=== PATIENT | female | born 1985 | race Caucasian/White ===

== ENCOUNTER 2018-03-04 17:38 | Outpatient (CLI) | payer BC ==
[2018-03-04 20:17] LABS: ADD UMIC NO; UR ASCORBIC ACID 40 mg/dL (NEGATIVE); UR BILIRUBIN (Dip) NEGATIVE (NEGATIVE); UR BLOOD (Dip) NEGATIVE (NEGATIVE); UR CLARITY SLIGHTLY CLOUDY (CLEAR); UR COLOR YELLOW (YELLOW); UR GLUCOSE (Dip) NEGATIVE (NEGATIVE); UR KETONES (Dip) NEGATIVE (NEGATIVE); UR LEUKOCYTE ESTERASE (Dip) NEGATIVE Leu/ul (NEGATIVE); UR NITRITE (Dip) NEGATIVE (NEGATIVE); UR RBC 1 /HPF (0-5); UR SPECIFIC GRAVITY (Dip) 1.019 (1.003-1.030); UR SQUAMOUS EPITHELIAL CELL FEW /HPF (FEW); UR TOTAL PROTEIN (Dip) NEGATIVE (NEGATIVE); UR UROBILINOGEN (Dip) NEGATIVE (NEGATIVE); UR WBC 1 /HPF (0-5)
[2018-03-04] MEDS: BETAMET NA PHOS/AC(6 MG/ML) 5ML INJ IM (20:24)
== END 2018-03-04 21:23 | disposition home or self-care (01) ==
LOC: OBT 17:38 → L-D 17:40 → OBT 21:23
DX: O41.03X0 Oligohydramnios, third trimester, not applicable or unspecified (principal); O09.293 Supervision of pregnancy with other poor reproductive or obstetric history, third trimester; Z3A.33 33 weeks gestation of pregnancy
CPT/HCPCS: 76817; 76818; 81001; 81003; 87086; 96372

== ENCOUNTER 2018-03-05 20:18 | Outpatient (CLI) | payer BC ==
[2018-03-05] MEDS: BETAMET NA PHOS/AC(6 MG/ML) 5ML INJ IM (21:27)
== END 2018-03-05 21:37 | disposition home or self-care (01) ==
LOC: OBT 20:18 → L-D 20:20 → OBT 21:37
DX: O09.213 Supervision of pregnancy with history of pre-term labor, third trimester (principal); Z3A.33 33 weeks gestation of pregnancy
CPT/HCPCS: 96372

== ENCOUNTER 2018-03-06 13:20 | Inpatient (IN) | payer BC ==
[2018-03-06 18:02] LABS: RUPTURE FETAL MEMBRANES POSITIVE (NEGATIVE)
[2018-03-06 19:04] LABS: ADD MAN DIFF? NO
[2018-03-06 19:06] LABS: BASOPHILS % 0.2 % (0.0-2.0); EOSINOPHILS % 0.3 % (0.0-7.0); HEMATOCRIT 33.4 % (37.0-47.0); HEMOGLOBIN 11.4 g/dl (12.0-16.0); LYMPHOCYTES # 2.1 10^3/ul (0.8-2.9); LYMPHOCYTES % 21.9 % (15.0-51.0); MEAN CORPUSCULAR HEMOGLOBIN 31.2 pg (29.0-33.0); MEAN CORPUSCULAR HGB CONC 34.1 g/dl (32.0-37.0); MEAN CORPUSCULAR VOLUME 91.5 fl (82.0-101.0); MEAN PLATELET VOLUME 12.3 fl (7.4-10.4); MONOCYTE # 0.7 10^3/ul (0.3-0.9); MONOCYTES % 7.1 % (0.0-11.0); NEUTROPHIL # 6.6 10^3/ul (1.6-7.5); NEUTROPHILS % 68.7 % (39.0-77.0); PLATELET COUNT 203 10^3/UL (140-415); RED BLOOD COUNT 3.65 10^6/ul (4.20-5.40); RED CELL DISTRIBUTION WIDTH 13.1 % (11.5-14.5)
[2018-03-06 19:06] LABS: WHITE BLOOD COUNT 9.7 10^3/ul (4.8-10.8)
[2018-03-06] MEDS: LACTATED RINGER'S 1,000 ML IV (19:08)
[2018-03-06] MEDS: AMPICILLIN 2 GM/NS (PMX) 100 ML IV (19:17)
[2018-03-06 19:25] LABS: ALANINE AMINOTRANSFERASE 23 IU/L (13-69); ALBUMIN 3.9 g/dl (3.3-4.9); ALBUMIN/GLOBULIN RATIO 1.08; ALKALINE PHOSPHATASE 109 IU/L (42-121); ANION GAP 15 (8-16); ASPARTATE AMINO TRANSFERASE 19 IU/L (15-46); BILIRUBIN,INDIRECT 0.2 mg/dl (0-1.1); BILIRUBIN,TOTAL 0.2 mg/dl (0.2-1.3); BLOOD UREA NITROGEN 8 mg/dl (7-20); CALCIUM 9.5 mg/dl (8.4-10.2); CARBON DIOXIDE 22 mmol/L (21-31); CHLORIDE 106 mmol/L (97-110); GLUCOSE 94 mg/dl (70-220); POTASSIUM 3.8 mmol/L (3.5-5.1); SODIUM 139 mmol/L (135-144); TOTAL PROTEIN 7.5 g/dl (6.1-8.1)
[2018-03-06 19:28] LABS: INR 0.93; PROTIME 12.6 Sec (11.9-14.9)
[2018-03-06 19:29] LABS: PARTIAL THROMBOPLASTIN TIME 26.9 Sec (25.0-35.0)
[2018-03-06] MEDS: AZITHROMYCIN 500MG/NS (PMX) 250 ML IV (20:45)
[2018-03-06] MEDS: MAGNESIUM SULFATE 4 GM/100 ML 100 ML IV (21:50)
[2018-03-06] MEDS: MAGNESIUM SULFATE 20 GM/500 ML 500 ML IV (22:29)
[2018-03-06] MEDS: AMPICILLIN 1 GM/NS (PMX) 50 ML IV (23:13)
[2018-03-07] MEDS ORDERED: ERYTHROMYCIN LACTOBIONATE 500 MG in SOD CHLORIDE 0.9% 100 ML IVPB
[2018-03-07 01:34] LABS: MAGNESIUM 4.1 mg/dl (1.7-2.5)
[2018-03-07] MEDS: AMPICILLIN 1 GM/NS (PMX) 50 ML IV ×6 (03:10→20:45)
[2018-03-07 07:14] LABS: MAGNESIUM 4.8 mg/dl (1.7-2.5)
[2018-03-07] MEDS: MAGNESIUM SULFATE 20 GM/500 ML 500 ML IV ×2 (08:57→19:30)
[2018-03-07] MEDS: LACTATED RINGER'S 1,000 ML IV ×3 (10:28→20:45)
[2018-03-07 13:02] LABS: MAGNESIUM 3.3 mg/dl (1.7-2.5)
[2018-03-07 19:43] LABS: MAGNESIUM 2.5 mg/dl (1.7-2.5)
[2018-03-07] MEDS: AZITHROMYCIN 500MG/NS (PMX) 250 ML IV (20:44)
[2018-03-08] MEDS: MAGNESIUM SULFATE 20 GM/500 ML 500 ML IV (00:17)
[2018-03-08] MEDS: AMPICILLIN 1 GM/NS (PMX) 50 ML IV ×4 (00:30→16:40)
[2018-03-08 00:57] LABS: MAGNESIUM 2.2 mg/dl (1.7-2.5)
[2018-03-08] MEDS: LACTATED RINGER'S 1,000 ML IV ×3 (05:00→16:39)
[2018-03-08 08:06] LABS: MAGNESIUM 2.2 mg/dl (1.7-2.5)
[2018-03-08] MEDS: AZITHROMYCIN 500MG/NS (PMX) 250 ML IV (18:50)
[2018-03-08] MEDS: CEFAZOLIN 2 GM/50 ML (PMX) 50 ML IVPB (22:43)
[2018-03-09] MEDS: LACTATED RINGER'S 1,000 ML IV ×6 (00:10→23:32)
[2018-03-09] MEDS: CEFAZOLIN 2 GM/50 ML (PMX) 50 ML IVPB ×3 (06:29→23:32)
[2018-03-09] MEDS: AZITHROMYCIN 500MG/NS (PMX) 250 ML IV (18:42)
[2018-03-10] MEDS: LACTATED RINGER'S 1,000 ML IV ×3 (05:58→22:16)
[2018-03-10] MEDS: CEFAZOLIN 2 GM/50 ML (PMX) 50 ML IVPB (05:58)
[2018-03-10] MEDS: AMOXICILLIN 500 MG CAP PO ×2 (13:40→22:12)
[2018-03-11] MEDS: AMOXICILLIN 500 MG CAP PO ×3 (06:23→22:04)
[2018-03-11] MEDS: LACTATED RINGER'S 1,000 ML IV ×3 (06:23→22:04)
[2018-03-12] MEDS: AMOXICILLIN 500 MG CAP PO ×3 (05:55→21:50)
[2018-03-12] MEDS: LACTATED RINGER'S 1,000 ML IV (05:59)
[2018-03-13] MEDS: AMOXICILLIN 500 MG CAP PO ×3 (05:33→22:09)
[2018-03-13] MEDS: LACTATED RINGER'S 1,000 ML IV ×2 (10:17→18:17)
[2018-03-13] MEDS ORDERED: DIPHENHYDRAMINE 25 MG CAP PO (13:00)
[2018-03-13] MEDS: HYDROCORTISONE 1% 28 GM CR TOP ×2 (16:54→22:09)
[2018-03-14] MEDS: LACTATED RINGER'S 1,000 ML IV ×2 (02:17→09:05)
[2018-03-14] MEDS: AMOXICILLIN 500 MG CAP PO ×2 (05:50→14:00)
[2018-03-14] MEDS ORDERED: CARBOPROST 250 MCG INJ IM ×2 (08:00→18:30)
[2018-03-14] MEDS ORDERED: OXYTOCIN 30 UNITS/LR 500 ML IV ×4 (08:00→18:30)
[2018-03-14] MEDS ORDERED: MISOPROSTOL 200 MCG TAB PR ×2 (08:00→18:30)
[2018-03-14] MEDS ORDERED: LIDOCAINE 1% (MPF) 30 ML INJ INJ (08:00)
[2018-03-14] MEDS ORDERED: METHYLERGONOVINE 0.2 MG INJ IM ×2 (08:00→18:30)
[2018-03-14 08:58] LABS: ADD MAN DIFF? NO
[2018-03-14 09:01] LABS: BASOPHILS % 0.5 % (0.0-2.0); EOSINOPHILS # 0.2 10^3/ul (0.0-0.5); EOSINOPHILS % 2.5 % (0.0-7.0); HEMATOCRIT 35.1 % (37.0-47.0); HEMOGLOBIN 11.9 g/dl (12.0-16.0); LYMPHOCYTES % 27.2 % (15.0-51.0); MEAN CORPUSCULAR HEMOGLOBIN 31.3 pg (29.0-33.0); MEAN CORPUSCULAR HGB CONC 33.9 g/dl (32.0-37.0); MEAN CORPUSCULAR VOLUME 92.4 fl (82.0-101.0); MEAN PLATELET VOLUME 11.7 fl (7.4-10.4); MONOCYTE # 0.4 10^3/ul (0.3-0.9); MONOCYTES % 5.8 % (0.0-11.0); NEUTROPHIL # 4.7 10^3/ul (1.6-7.5); NEUTROPHILS % 62.4 % (39.0-77.0); PLATELET COUNT 203 10^3/UL (140-415); RED CELL DISTRIBUTION WIDTH 13.1 % (11.5-14.5)
[2018-03-14 09:01] LABS: WHITE BLOOD COUNT 7.5 10^3/ul (4.8-10.8)
[2018-03-14] MEDS: HYDROCORTISONE 1% 28 GM CR TOP (09:20)
[2018-03-14 09:23] LABS: INR 0.94; PROTIME 12.7 Sec (11.9-14.9)
[2018-03-14] MEDS: OXYTOCIN 30 UNITS/LR 500 ML IV ×2 (09:23→18:36)
[2018-03-14 09:24] LABS: PARTIAL THROMBOPLASTIN TIME 29.5 Sec (25.0-35.0)
[2018-03-14 09:52] LABS: HEPATITIS B SURFACE ANTIGEN NEGATIVE (NEGATIVE)
[2018-03-14] MEDS: BUTORPHANOL 2 MG INJ IV (13:46)
[2018-03-14] MEDS ORDERED: BUTORPHANOL 1 MG INJ IV (14:00)
[2018-03-14] MEDS: IBUPROFEN 600 MG TAB PO ×2 (16:56→23:36)
[2018-03-14] MEDS ORDERED: SENNA/DOCUSATE NA (8.6MG/50MG) TAB PO (18:30)
[2018-03-14] MEDS ORDERED: ZOLPIDEM 5 MG TAB PO (18:30)
[2018-03-14] MEDS ORDERED: NACL 0.9% 3 ML SYG IV (18:30)
[2018-03-14] MEDS: BENZOCAINE 20% 56 ML SPRAY TOP (19:15)
[2018-03-14] MEDS: WITCH HAZEL/GLYCERIN PAD PR (19:15)
[2018-03-14] MEDS: LANOLIN 7 GM TUBE TOP (19:15)
[2018-03-14 20:07] LABS: RAPID PLASMA REAGIN NONREACTIVE (NR)
[2018-03-14] MEDS: SENNA/DOCUSATE NA (8.6MG/50MG) TAB PO (21:00)
[2018-03-15] MEDS: IBUPROFEN 600 MG TAB PO ×4 (00:07→17:31)
[2018-03-15] MEDS: SENNA/DOCUSATE NA (8.6MG/50MG) TAB PO ×2 (09:12→21:00)
[2018-03-15 10:01] LABS: ADD MAN DIFF? NO
[2018-03-15 10:03] LABS: BASOPHILS % 0.5 % (0.0-2.0); EOSINOPHILS # 0.2 10^3/ul (0.0-0.5); HEMOGLOBIN 11.3 g/dl (12.0-16.0); LYMPHOCYTES # 1.6 10^3/ul (0.8-2.9); LYMPHOCYTES % 18.5 % (15.0-51.0); MEAN CORPUSCULAR HGB CONC 33.2 g/dl (32.0-37.0); MEAN CORPUSCULAR VOLUME 93.4 fl (82.0-101.0); MEAN PLATELET VOLUME 11.9 fl (7.4-10.4); MONOCYTE # 0.4 10^3/ul (0.3-0.9); MONOCYTES % 4.9 % (0.0-11.0); NEUTROPHIL # 6.1 10^3/ul (1.6-7.5); NEUTROPHILS % 73.1 % (39.0-77.0); PLATELET COUNT 197 10^3/UL (140-415); RED BLOOD COUNT 3.64 10^6/ul (4.20-5.40)
[2018-03-15 10:03] LABS: WHITE BLOOD COUNT 8.4 10^3/ul (4.8-10.8)
[2018-03-16] MEDS: OXYCODONE/ASPIRIN (4.88/325) TAB PO (04:33)
[2018-03-16] MEDS: IBUPROFEN 600 MG TAB PO ×3 (06:30→12:06)
[2018-03-16] MEDS: DIPHTH/TET/ACEL PERTUSS (ADULT) 0.5 ML VIAL IM* (09:00)
[2018-03-16] MEDS: SENNA/DOCUSATE NA (8.6MG/50MG) TAB PO (10:46)
== END 2018-03-16 13:42 | disposition home or self-care (01) | DRG 775 ==
LOC: PP1 03-11 15:21 → L-D 03-14 07:40 → OBT 13:20 → L-D 13:23 → PP1 03-14 18:09 → L-D 14:33 → OBT 18:10 → L-D 18:10
PROVIDERS: Obstetrics & Gynecology
PROC: 10E0XZZ Delivery of Products of Conception, External Approach (ICD-10-PCS; principal; 2018-03-14)
DX: O60.14X0 Preterm labor third trimester with preterm delivery third trimester, not applicable or unspecified (principal); Z3A.34 34 weeks gestation of pregnancy; Z37.0 Single live birth
CPT/HCPCS: 76815; 76818; 80053; 83735; 84112; 85025; 85384; 85610; 85730; 86592; 86900; 86901; 87340; 99464